=== PATIENT | male | born 1980 | race Caucasian/White ===

== ENCOUNTER 2017-09-21 19:55 | Observation (INO) | payer OTHER ==
[2017-09-21 21:33] VITALS: BP 129/73; PULSE 62; RESP 18; TEMP 98.4; O2SAT 100
[2017-09-21 21:42] VITALS: PULSE 63
[2017-09-22 00:44] VITALS: PULSE 64
[2017-09-22 02:00] VITALS: BP 131/74; PULSE 74; RESP 18; TEMP 98.4; O2SAT 97
[2017-09-22 03:56] VITALS: PULSE 58
[2017-09-22 07:10] VITALS: PULSE 66
[2017-09-22 07:28] VITALS: BP 111/60; PULSE 61; RESP 16; TEMP 97.7; O2SAT 98
--- NOTE | 2017-09-22 08:40 | HHI.HP ---
[facility] Primary Care Physician Unknown Chief Complaint Chest pain History of Present Illness This is a 37-year-old male that presents to ED [place] with a complaint of 3 days of constant central chest discomfort. States is worsened when he lifts weights at the gym. Denies shortness breath, nausea, or diaphoresis. Denies history of CAD. Denies hypertension, hyperlipidemia, diabetes, and CAD. Denies history of tobacco abuse. Denies family history of CAD. Denies recent illness. Denies fevers or chills. Review of Systems General: Patient denies fevers, chills recent, and recent travel HEENT: Patient denies headache, sore throat, difficulty swallowing. Cardiovascular: Has the chest discomfort as mentioned above. Denies sensation of heart beating rapidly or irregularly. No syncope. Denies diaphoresis. Respiratory: Denies shortness of breath or inspirational chest discomfort. Denies coughing wheezing or hemoptysis. GI: Patient denies nausea, vomiting, diarrhea, abdominal pain, bloody stools. Musculoskeletal: Patient denies joint pain or edema. Denies calf pain or edema. Neurovascular: Patient denies numbness, tingling, weakness in extremities. Denies headache. Endocrine: Denies polyuria and polydipsia. Hematologic: Denies easy bruising. Skin: Denies rash or itching. Past Family Social History Allergies: Coded Allergies: Penicillins (Verified Allergy, Unknown, AN INFANT, 09/21/17) Past Medical History Denies hypertension, hyperlipidemia, diabetes, and CAD. Denies history of tobacco abuse. Past Surgical History Vasectomy and circumcision. Reported Medications Reported Meds & Active Scripts Active No Active Prescriptions or Reported Medications Family History Denies family history of CAD. Social History Quit smoking 14 years ago. Prior that one pack of cigarettes a day for a few years. Has occasional alcohol. Denies illicit drugs. Works as a credit or loans officer. Physical Exam Vital Signs Vital Signs Date Time Temp Pulse Resp B/P (MAP) Pulse Ox O2 Delivery O2 Flow Rate FiO2 09/22/17 07:28 97.7 61 16 111/60 (77) 98 09/22/17 03:56 58 09/22/17 02:00 98.4 74 18 131/74 (93) 97 09/22/17 00:44 64 09/21/17 21:42 63 09/21/17 21:33 98.4 62 18 129/73 (91) 100 Physical Exam GENERAL: This is a well-nourished, well-developed patient, in no apparent distress. Patient speaks in clear complete sentences. Patient is pleasant. HEENT: Head is atraumatic and normocephalic. Neck is supple without lymphadenopathy and trachea is midline. No JVD or carotid bruits. CARDIOVASCULAR: Regular rate and rhythm without murmurs, gallops, or rubs. RESPIRATORY: Clear to auscultation. Breath sounds equal bilaterally. No wheezes , rales, or rhonchi. Chest wall is nontender however discomfort is reproducible when pushing and pulling with his arms against resistance. No use of accessory muscles. GASTROINTESTINAL: Abdomen is nontender, nondistended. Abdomen soft. No obvious pulsatile mass or bruit. No CVA tenderness. Strong femoral pulses bilaterally. Normal bowel sounds in all quadrants. MUSCULOSKELETAL: Patient is moving upper and lower extremities freely. No calf tenderness or edema, no Homans sign. Strong pulses in upper and lower extremities. NEUROLOGICAL: Patient is alert and oriented. Cranial nerves 2-12 are grossly intact. No focal deficits and speech is clear. SKIN: No rash and turgor is normal. Laboratory Laboratory Tests Test 09/21/17 21:00 09/21/17 23:45 Troponin I LESS THAN 0.02 LESS THAN 0.02 Imaging Chest x-ray reveals nothing acute. Course EKGs have sinus rhythm with ST findings consistent with early repolarization. Caprini VTE Risk Assessment Caprini VTE Risk Assessment: No/Low Risk (score <= 1) Caprini Risk Assessment Model Point Value = 1 Point Value = 2 Point Value = 3 Point Value = 5 Age 41-60 Minor surgery BMI > 25 kg/m2 Swollen legs Varicose veins or History of unexplained or recurrent spontaneous Oral contraceptives or hormone replacement Sepsis (< 1 month) Serious lung disease, including pneumonia (< 1 month) Abnormal pulmonary function Acute myocardial infarction Congestive heart failure (< 1 month) History of inflammatory bowel disease Medical patient at bed rest Age 61-74 Arthroscopic surgery Major open surgery (> 45 min) Laparoscopic surgery (> 45 min) Malignancy Confined to bed (> 72 hours) Immobilizing plaster cast Central venous access Age >= 75 History of VTE Family history of VTE Factor V Leiden Prothrombin [id number] Lupus anticoagulant Anticardiolipin antibodies Elevated serum homocysteine Heparin-induced thrombocytopenia Other congenital or acquired thrombophilia Stroke (< 1 month) Elective arthroplasty Hip, pelvis, or leg fracture Acute spinal cord injury (< 1 month) Prophylaxis Regimen Total Risk Factor Score Risk Level Prophylaxis Regimen 0-1 Low Early ambulation 2 Moderate Order ONE of the following: *Sequential Compression Device (SCD) *Heparin 5000 units SQ BID 3-4 Higher Order ONE of the following medications: *Heparin 5000 units SQ TID *Enoxaparin/Lovenox 40 mg SQ daily (WT < 150 kg, CrCl > 30 mL/min) *Enoxaparin/Lovenox 30 mg SQ daily (WT < 150 kg, CrCl > 10-29 mL/min) *Enoxaparin/Lovenox 30 mg SQ BID (WT < 150 kg, CrCl > 30 mL/min) AND/OR *Sequential Compression Device (SCD) 5 or more Highest Order ONE of the following medications: *Heparin 5000 units SQ TID (Preferred with Epidurals) *Enoxaparin/Lovenox 40 mg SQ daily (WT < 150 kg, CrCl > 30 mL/min) *Enoxaparin/Lovenox 30 mg SQ daily (WT < 150 kg, CrCl > 10-29 mL/min) *Enoxaparin/Lovenox 30 mg SQ BID (WT < 150 kg, CrCl > 30 mL/min) AND *Sequential Compression Device (SCD) Assessment and Plan Assessment and Plan * Atypical chest pain: His discomfort appears musculoskeletal in nature. He is a serial cardiac enzymes and EKGs for ruling out purposes. He was seen by Dr. Tovar cardiology in the chest pain center. He will undergo a Deni protocol ETT and be discharged a stress test was nonischemic and be given a prescription of naproxen and also instructed to follow-up with PCP. Return to ED for interval issues. Patient is stable at this time. He is agreeable to this plan. Ramirez Correa Sep 22, 2017 08:40
[2017-09-22] MEDS ORDERED: NAPR500T2 PO (08:45)
--- NOTE | 2017-09-22 08:46 | HHI.DCPOC ---
Discharge Care Plan Diagnosis: (1) Chest pain, atypical Goals to Promote Your Health * To prevent worsening of your condition and complications * To maintain your health at the optimal level Directions to Meet Your Goals Take your medications as prescribed Follow your dietary instruction Follow activity as directed Keep your appointments as scheduled Take your immunizations and boosters as scheduled If your symptoms worsen call your PCP, if no PCP go to Urgent Care Center or Emergency Room Smoking is Dangerous to Your Health. Avoid second hand smoke Call the 24-hour hour crisis hotline for domestic abuse at Ramirez Correa Sep 22, 2017 08:46
--- NOTE | 2017-09-22 09:33 | TR ---
Date Performed: 09/22/2017 Time Performed: 08:12:21 DOCTOR: Meryl Tovar DRUG LIST: CLINICAL HISTORY: REASON FOR TEST: REASON FOR ENDING: OBSERVATION: CONCLUSION: KELLIE PROTOCOL. NO CP. MILD SOB. TEST STOPPED AFTER EXCEEDING GOAL HR SECONDARY TO L EG FATIGUE.Maximum AO=783 % Max HR Achieved=99.0% Maximum SR=877/78 Total Exercise Time=11:01 COMMENTS:
--- NOTE | 2017-09-22 15:28 | EKG ---
Date Performed: 09/22/2017 Time Performed: 01:25:18 PTAGE: 37 years EKG: SINUS BRADYCARDIA ST ELEVATION, PROBABLY EARLY REPOLARIZATION BORDERLINE ECG Since PREVIOUS TRACING , no significant change noted PREVIOUS TRACIN09/21/2017 21.20 DOCTOR: Meryl Tovar Interpretating Date/Time 09/22/2017 15:27:35
--- NOTE | 2017-09-22 15:31 | EKG ---
Date Performed: 09/21/2017 Time Performed: 21:20:05 PTAGE: 37 years EKG: Sinus rhythm WITH SINUS ARRHYTHMIA ST ELEVATION, PROBABLY EARLY REPOLARIZATION BORDERLINE ECG Since PREVIOUS TRACING , no significant change noted DOCTOR: Meryl Tovar Interpretating Date/Time 09/22/2017 15:29:45
== END 2017-09-22 10:23 | disposition home or self-care (01) ==
LOC: NEDDLT 19:55 → NEPFCDU 20:05
PROVIDERS: ADMIT Internal Medicine Cardiovascular Disease; ATTEND Internal Medicine Cardiovascular Disease
DX: R07.9 Chest pain, unspecified (principal); R94.31 Abnormal electrocardiogram [ECG] [EKG]; Z87.891 Personal history of nicotine dependence
CPT/HCPCS: 71045; 80053; 82550; 82552; 83690; 84484; 85025; 85610; 85730; 93005; 93017; 99285; G0378

== ENCOUNTER 2018-05-18 03:00 | Observation (INO) ==
[2018-05-18] MEDS ORDERED: Sodium Chlor 0.9% Inj 500 ML IV.SIG ONE ×2 (03:32→05:09)
--- NOTE | 2018-05-18 03:35 | ED ---
HPI General Chief complaint: Chest Pain Stated complaint: Chest pain Time Seen by Provider: 05/18/18 03:32 Source: patient and EMS Mode of arrival: EMS Limitations: no limitations History of Present Illness HPI narrative: The patient is a 37 year old male who presents to the [facility] emergency department with a history of onset of chest pain and back pain that began while he was working out at work prior to arrival. The patient reports that he was doing push-ups and pull-ups. He reports that the pain is been constant since it began. He reports that the pain is a pressure sensation. He reports that since then he has developed numbness and tingling to his arms and legs, shortness of breath with hyperventilation, and tingling around his mouth. The patient reports that he did drink 3 coffees earlier this evening, however this is not unusual for him. He reports that over the last 2 weeks he has been on a strict diet, however he has been eating regular meals. He reports that he has had a 7 pound weight loss in the last 2 weeks as he is trying to get fit. He denies ever having chest pain like this previously. He reports that he has been under increased stress related to problems at home. On review of systems otherwise, the patient denies having any radiation of pain into his shoulders or throat. He denies having any nausea or diaphoresis. He denies having any prior history of coronary artery disease, DVT, or PE. He denies having any calf pain or swelling. On review of systems otherwise, the patient denies having any recent fevers, cough, congestion, neck pain, vomiting , diarrhea, urinary symptoms, or neurologic symptoms. The patient reports that over the last 6-7 months he has had upper abdominal pain. He reports that this has been coming and going. He denies having a primary care physician currently. Related Data Home Medications Medication Instructions Recorded Confirmed No Known Home Medications 05/18/18 05/18/18 Allergies Allergy/AdvReac Type Severity Reaction Status Date / Time Penicillins Allergy Unknown AN Verified 09/21/17 17:37 Review of Systems ROS: all other systems reviewed are negative (Except for that which was mentioned in the HPI.) [facility] Medical History Medical History Patient denies medical problems (Acute) Surgical History Surgical History H/O vasectomy (Acute) Family History Family History Other Patient denies significant medical history Social History Social History Substance History: No History of Abuse Second Hand Smoke Exposure: No Smoking Status: Former smoker Tobacco Type: Cigarettes How Often Do You Have a Drink Containing Alcohol: Monthly or less Recent Travel in [facility] within the Last 8 Weeks: No Recent Out of Country Travel within the Last 8 Weeks: No Immunization History Tetanus Immunization: >5 Years Hx Influenza Vaccine This Season: No Exam Const General: cooperative, well developed and anxious Nutritional Appearance: well nourished Orientation: alert, awake and oriented x3 HENMT Head: normocephalic and atraumatic Nose: no nasal discharge and no epistaxis Mouth: moist mucous membranes Throat: posterior oropharynx normal and uvula midline Eyes Sclera: normal sclerae Pupils: PERRL Neck Neck: no meningeal signs, trachea midline and no JVD Resp Effort & Inspection: tachypneic (The patient is noted to be hyperventilating.) and no use of accessory muscles Auscultation: clear to auscultation bilaterally Cardio Rate: tachycardic (Sinus tachycardia in the low 100s. No pulse deficits to the extremities on simultaneous auscultation and palpation of his radial artery.) Rhythm: regular rhythm Heart Sounds: no gallops, no murmurs and no rubs GI Inspection: non-distended Palpation: soft, no hepatosplenomegaly, no guarding, not rigid and tender in the epigastrum; not in the LLQ, not in the RLQ, not in the LUQ, not in the RUQ, not at McBurney's point, Ramsey's sign negative and with no rebound tenderness Auscultation: normal bowel sounds Back/Spine/Pelvis Back: no CVA tenderness Skin General: dry skin (warm) Neuro General: alert, awake and oriented x3 Cranial Nerves: other (No facial asymmetry. Grossly nonfocal.) Speech: speech normal Motor: no movement abnormalities noted Extrem General: normal to inspection (No calf tenderness on palpation. 2+ pulses in all 4 extremities.), no clubbing, no cyanosis and no edema Psych Mood: anxious mood Affect: anxious affect Judgment: judgment good Course Reevaluation(s) Reevaluation #1: The patient on reevaluation was resting comfortably and feeling improved. Consultations Consultation #1: The patient's case including history, pertinent physical examination findings, and laboratory studies were discussed with Dr. Franks. It was agreed that the patient would be admitted to the hospitalist service. Initial Documented Vital Signs Temperature 98.3 F 05/18/18 03:18 Pulse Rate 118 H 05/18/18 03:18 Respiratory Rate 22 05/18/18 03:18 Blood Pressure 164/79 H 05/18/18 03:18 Pulse Oximetry 100 05/18/18 03:18 Last Documented Vital Signs Temperature 97.6 F 05/18/18 15:06 Pulse Rate 86 05/18/18 15:06 Respiratory Rate 18 05/18/18 15:06 Blood Pressure 107/58 L 05/18/18 15:06 Pulse Oximetry 99 05/18/18 15:06 Medical Decision Making MDM Narrative Medical decision making narrative: During the course of the patient's emergency department visit, the patient's history, examination, and differential diagnosis were reviewed with the patient. The patient was placed on a monitoring engineer with oximetry and frequent blood pressure monitoring. The patient had IV access obtained and blood work sent for analysis. Diagnostic evaluation was started regarding the patient's chest pain and shortness of breath. The patient was initially provided aspirin 324 mg prior to arrival by ambulance services. The patient's diagnostic evaluation is remarkable for white count of 7.8, platelets 274, normal differential, hemoglobin is 14.2, PT 11.8, INR 1.2, PTT 23.3, chemistry is remarkable for magnesium of 1.1. This will be supplemented IV. Troponin I was less than 0.02, GFR is 80, chloride 111, calcium 7.7, potassium 2.9. The patient was noted to have an acidosis with an lactic acid was sent for evaluation regarding the patient's workup. The patient's lactic acid was within normal limits. The patient's potassium was supplemented orally. CPK is 70. BNP is within normal limits at 5. Urinalysis showed no acute abnormality, urine drug screen is negative, chest x-ray shows no acute evidence of cardiopulmonary disease. The patient will be [facility] to the [facility] service for continuation of treatment of electrolyte derangements which could be related to his recent weight loss regimen. The patient's results were discussed with the patient, including the plan of care. I explained that further testing and/ or monitoring is indicated based on the patient's history, examination, and/ or laboratory findings. Therefore, I recommended admission for additional evaluation. The patient expressed understanding and was agreeable with this plan. The patient was admitted to the hospital in stable condition and sent to a bed under the care of [facility]. Medical Screen Exam Complete: Yes Emergency Medical Condition: Yes Differential Diagnosis Differential Diagnosis: Acute coronary syndrome, versus aortic dissection, versus electrolyte derangements, versus rhabdomyolysis, versus anxiety disorder Medical Records Medical records reviewed: Yes I reviewed the patient's medical records. Lab Data Lab results reviewed: Yes I reviewed the patient's lab results. Result diagrams: 05/18/18 03:40 05/18/18 09:58 Lab Results 05/18/18 05/18/18 05/18/18 Range/Units 03:40 03:40 03:40 WBC 7.8 (4.0-11.0) th/mm3 RBC 4.29 L (4.50-5.90) mil/mm3 Hgb 14.2 (13.0-17.0) gm/dL Hct 40.6 (39.0-51.0) % MCV 94.8 (80.0-100.0) fL MCH 33.2 (27.0-34.0) pg MCHC 35.0 (32.0-36.0) % RDW 13.9 (11.6-17.2) % Plt Count 274 (150-450) th/mm3 MPV 8.0 (7.0-11.0) fL Neut % (Auto) 65.6 (16.0-70.0) % Lymph % (Auto) 25.5 (9.0-44.0) % [place] % (Auto) 6.8 (0.0-8.0) % Eos % (Auto) 1.4 (0.0-4.0) % Baso % (Auto) 0.7 (0.0-2.0) % Neut # (Auto) 5.1 (1.8-7.7) th/mm3 Lymph # (Auto) 2.0 (1.0-4.8) th/mm3 [place] # (Auto) 0.5 (0.0-0.9) th/mm3 Eos # (Auto) 0.1 (0.0-0.4) th/mm3 Baso # (Auto) 0.1 (0.0-0.2) th/mm3 WBC Differential . Differential Comment Auto diff final PT (9.8-11.6) sec INR Ratio APTT (24.3-30.1) sec Fibrinogen (227-377) mg/dL D-Dimer Quant (PE/DVT) 0.23 (0.00-0.50) mg/L FEU Sodium 141 (136-145) meq/L Potassium 2.9 L* (3.5-5.1) meq/L Chloride 105 (98-107) meq/L Carbon Dioxide 18.9 L (21.0-32.0) meq/L Anion Gap 17 H (5-15) meq/L BUN 6 L (7-18) mg/dL Creatinine 1.39 H (0.60-1.30) mg/dL Estimated GFR 58 L (>89) mL/min Random Glucose 113 H (74-106) mg/dL Lactic Acid (0.4-2.0) mmol/L Calcium 8.6 (8.5-10.1) mg/dL Phosphorus (2.5-4.9) mg/dL Magnesium (1.5-2.5) mg/dL Total Bilirubin 0.4 (0.2-1.0) mg/dL AST 16 (15-37) U/L ALT 24 (12-78) U/L Alkaline Phosphatase 60 (45-117) U/L Total Creatine Kinase (39-308) U/L Troponin I Less than 0.02 L (0.02-0.05) ng/mL B-Natriuretic Peptide (0-100) pg/mL Total Protein 7.7 (6.4-8.2) g/dL Albumin 4.1 (3.4-5.0) g/dL Lipase 76 (73-393) U/L TSH 0.507 (0.358-3.740) uIU/mL Urine Color (Yellw/Straw) Urine Clarity (Clear) Urine pH (5.0-8.5) Ur Specific [place] (1.002-1.035) Urine Protein (Neg-Trace) mg/dL Urine Glucose (UA) (Negative) mg/dL Urine Ketones (Negative) mg/dL Urine Occult Blood (Negative) Urine Nitrate (Negative) Urine Bilirubin (Negative) Urine Urobilinogen (Less than 2) mg/dL Ur Leukocyte Esterase (Negative) Urine RBC (0-3) /hpf Urine WBC (0-5) /hpf Urine Mucus (Occasional) /lpf Micro UA Comment Ur Microscopic Review Urine Culture Comments Urine Opiates Screen (Neg) Ur Barbiturates Screen (Neg) Ur Amphetamines Screen (Neg) U Benzodiazepines Scrn (Neg) Urine Cocaine Screen (Neg) U Cannabinoids Screen (Neg) 05/18/18 05/18/18 05/18/18 Range/Units 03:40 03:40 03:40 WBC (4.0-11.0) th/mm3 RBC (4.50-5.90) mil/mm3 Hgb (13.0-17.0) gm/dL Hct (39.0-51.0) % MCV (80.0-100.0) fL MCH (27.0-34.0) pg MCHC (32.0-36.0) % RDW (11.6-17.2) % Plt Count (150-450) th/mm3 MPV (7.0-11.0) fL Neut % (Auto) (16.0-70.0) % Lymph % (Auto) (9.0-44.0) % [place] % (Auto) (0.0-8.0) % Eos % (Auto) (0.0-4.0) % Baso % (Auto) (0.0-2.0) % Neut # (Auto) (1.8-7.7) th/mm3 Lymph # (Auto) (1.0-4.8) th/mm3 [place] # (Auto) (0.0-0.9) th/mm3 Eos # (Auto) (0.0-0.4) th/mm3 Baso # (Auto) (0.0-0.2) th/mm3 WBC Differential Differential Comment PT 11.8 H (9.8-11.6) sec INR 1.2 Ratio APTT 23.3 L (24.3-30.1) sec Fibrinogen 209 L (227-377) mg/dL D-Dimer Quant (PE/DVT) (0.00-0.50) mg/L FEU Sodium (136-145) meq/L Potassium (3.5-5.1) meq/L Chloride (98-107) meq/L Carbon Dioxide (21.0-32.0) meq/L Anion Gap (5-15) meq/L BUN (7-18) mg/dL Creatinine (0.60-1.30) mg/dL Estimated GFR (>89) mL/min Random Glucose (74-106) mg/dL Lactic Acid (0.4-2.0) mmol/L Calcium (8.5-10.1) mg/dL Phosphorus (2.5-4.9) mg/dL Magnesium 1.1 L (1.5-2.5) mg/dL Total Bilirubin (0.2-1.0) mg/dL AST (15-37) U/L ALT (12-78) U/L Alkaline Phosphatase (45-117) U/L Total Creatine Kinase 70 (39-308) U/L Troponin I (0.02-0.05) ng/mL B-Natriuretic Peptide 5 (0-100) pg/mL Total Protein (6.4-8.2) g/dL Albumin (3.4-5.0) g/dL Lipase (73-393) U/L TSH (0.358-3.740) uIU/mL Urine Color (Yellw/Straw) Urine Clarity (Clear) Urine pH (5.0-8.5) Ur Specific [place] (1.002-1.035) Urine Protein (Neg-Trace) mg/dL Urine Glucose (UA) (Negative) mg/dL Urine Ketones (Negative) mg/dL Urine Occult Blood (Negative) Urine Nitrate (Negative) Urine Bilirubin (Negative) Urine Urobilinogen (Less than 2) mg/dL Ur Leukocyte Esterase (Negative) Urine RBC (0-3) /hpf Urine WBC (0-5) /hpf Urine Mucus (Occasional) /lpf Micro UA Comment Ur Microscopic Review Urine Culture Comments Urine Opiates Screen (Neg) Ur Barbiturates Screen (Neg) Ur Amphetamines Screen (Neg) U Benzodiazepines Scrn (Neg) Urine Cocaine Screen (Neg) U Cannabinoids Screen (Neg) 05/18/18 05/18/18 05/18/18 Range/Units 03:40 04:44 04:44 WBC (4.0-11.0) th/mm3 RBC (4.50-5.90) mil/mm3 Hgb (13.0-17.0) gm/dL Hct (39.0-51.0) % MCV (80.0-100.0) fL MCH (27.0-34.0) pg MCHC (32.0-36.0) % RDW (11.6-17.2) % Plt Count (150-450) th/mm3 MPV (7.0-11.0) fL Neut % (Auto) (16.0-70.0) % Lymph % (Auto) (9.0-44.0) % [place] % (Auto) (0.0-8.0) % Eos % (Auto) (0.0-4.0) % Baso % (Auto) (0.0-2.0) % Neut # (Auto) (1.8-7.7) th/mm3 Lymph # (Auto) (1.0-4.8) th/mm3 [place] # (Auto) (0.0-0.9) th/mm3 Eos # (Auto) (0.0-0.4) th/mm3 Baso # (Auto) (0.0-0.2) th/mm3 WBC Differential Differential Comment PT (9.8-11.6) sec INR Ratio APTT (24.3-30.1) sec Fibrinogen (227-377) mg/dL D-Dimer Quant (PE/DVT) (0.00-0.50) mg/L FEU Sodium (136-145) meq/L Potassium (3.5-5.1) meq/L Chloride (98-107) meq/L Carbon Dioxide (21.0-32.0) meq/L Anion Gap (5-15) meq/L BUN (7-18) mg/dL Creatinine (0.60-1.30) mg/dL Estimated GFR (>89) mL/min Random Glucose (74-106) mg/dL Lactic Acid (0.4-2.0) mmol/L Calcium (8.5-10.1) mg/dL Phosphorus 0.5 L (2.5-4.9) mg/dL Magnesium (1.5-2.5) mg/dL Total Bilirubin (0.2-1.0) mg/dL AST (15-37) U/L ALT (12-78) U/L Alkaline Phosphatase (45-117) U/L Total Creatine Kinase (39-308) U/L Troponin I (0.02-0.05) ng/mL B-Natriuretic Peptide (0-100) pg/mL Total Protein (6.4-8.2) g/dL Albumin (3.4-5.0) g/dL Lipase (73-393) U/L TSH (0.358-3.740) uIU/mL Urine Color Straw (Yellw/Straw) Urine Clarity Clear (Clear) Urine pH 6.0 (5.0-8.5) Ur Specific [place] 1.004 (1.002-1.035) Urine Protein Negative (Neg-Trace) mg/dL Urine Glucose (UA) Negative (Negative) mg/dL Urine Ketones 20 (Negative) mg/dL Urine Occult Blood Negative (Negative) Urine Nitrate Negative (Negative) Urine Bilirubin Negative (Negative) Urine Urobilinogen Less than 2 (Less than 2) mg/dL Ur Leukocyte Esterase Negative (Negative) Urine RBC Less than 1 (0-3) /hpf Urine WBC Less than 1 (0-5) /hpf Urine Mucus Few H (Occasional) /lpf Micro UA Comment Culture not ind Ur Microscopic Review Not Reportable Urine Culture Comments Culture not ind Urine Opiates Screen Neg (Neg) Ur Barbiturates Screen Neg (Neg) Ur Amphetamines Screen Neg (Neg) U Benzodiazepines Scrn Neg (Neg) Urine Cocaine Screen Neg (Neg) U Cannabinoids Screen Neg (Neg) 05/18/18 05/18/18 05/18/18 Range/Units 06:34 08:40 09:58 WBC (4.0-11.0) th/mm3 RBC (4.50-5.90) mil/mm3 Hgb (13.0-17.0) gm/dL Hct (39.0-51.0) % MCV (80.0-100.0) fL MCH (27.0-34.0) pg MCHC (32.0-36.0) % RDW (11.6-17.2) % Plt Count (150-450) th/mm3 MPV (7.0-11.0) fL Neut % (Auto) (16.0-70.0) % Lymph % (Auto) (9.0-44.0) % [place] % (Auto) (0.0-8.0) % Eos % (Auto) (0.0-4.0) % Baso % (Auto) (0.0-2.0) % Neut # (Auto) (1.8-7.7) th/mm3 Lymph # (Auto) (1.0-4.8) th/mm3 [place] # (Auto) (0.0-0.9) th/mm3 Eos # (Auto) (0.0-0.4) th/mm3 Baso # (Auto) (0.0-0.2) th/mm3 WBC Differential Differential Comment PT (9.8-11.6) sec INR Ratio APTT (24.3-30.1) sec Fibrinogen (227-377) mg/dL D-Dimer Quant (PE/DVT) (0.00-0.50) mg/L FEU Sodium 144 (136-145) meq/L Potassium 3.9 D (3.5-5.1) meq/L Chloride 111 H (98-107) meq/L Carbon Dioxide 23.9 (21.0-32.0) meq/L Anion Gap 9 (5-15) meq/L BUN 5 L (7-18) mg/dL Creatinine 1.06 (0.60-1.30) mg/dL Estimated GFR 80 L (>89) mL/min Random Glucose 92 (74-106) mg/dL Lactic Acid 1.0 (0.4-2.0) mmol/L Calcium 7.7 L D (8.5-10.1) mg/dL Phosphorus 3.2 D (2.5-4.9) mg/dL Magnesium 2.4 D (1.5-2.5) mg/dL Total Bilirubin (0.2-1.0) mg/dL AST (15-37) U/L ALT (12-78) U/L Alkaline Phosphatase (45-117) U/L Total Creatine Kinase (39-308) U/L Troponin I Less than 0.02 L Less than 0.02 L (0.02-0.05) ng/mL B-Natriuretic Peptide (0-100) pg/mL Total Protein (6.4-8.2) g/dL Albumin (3.4-5.0) g/dL Lipase (73-393) U/L TSH (0.358-3.740) uIU/mL Urine Color (Yellw/Straw) Urine Clarity (Clear) Urine pH (5.0-8.5) Ur Specific [place] (1.002-1.035) Urine Protein (Neg-Trace) mg/dL Urine Glucose (UA) (Negative) mg/dL Urine Ketones (Negative) mg/dL Urine Occult Blood (Negative) Urine Nitrate (Negative) Urine Bilirubin (Negative) Urine Urobilinogen (Less than 2) mg/dL Ur Leukocyte Esterase (Negative) Urine RBC (0-3) /hpf Urine WBC (0-5) /hpf Urine Mucus (Occasional) /lpf Micro UA Comment Ur Microscopic Review Urine Culture Comments Urine Opiates Screen (Neg) Ur Barbiturates Screen (Neg) Ur Amphetamines Screen (Neg) U Benzodiazepines Scrn (Neg) Urine Cocaine Screen (Neg) U Cannabinoids Screen (Neg) 05/18/18 Range/Units 10:06 WBC (4.0-11.0) th/mm3 RBC (4.50-5.90) mil/mm3 Hgb (13.0-17.0) gm/dL Hct (39.0-51.0) % MCV (80.0-100.0) fL MCH (27.0-34.0) pg MCHC (32.0-36.0) % RDW (11.6-17.2) % Plt Count (150-450) th/mm3 MPV (7.0-11.0) fL Neut % (Auto) (16.0-70.0) % Lymph % (Auto) (9.0-44.0) % [place] % (Auto) (0.0-8.0) % Eos % (Auto) (0.0-4.0) % Baso % (Auto) (0.0-2.0) % Neut # (Auto) (1.8-7.7) th/mm3 Lymph # (Auto) (1.0-4.8) th/mm3 [place] # (Auto) (0.0-0.9) th/mm3 Eos # (Auto) (0.0-0.4) th/mm3 Baso # (Auto) (0.0-0.2) th/mm3 WBC Differential Differential Comment PT (9.8-11.6) sec INR Ratio APTT (24.3-30.1) sec Fibrinogen (227-377) mg/dL D-Dimer Quant (PE/DVT) (0.00-0.50) mg/L FEU Sodium (136-145) meq/L Potassium (3.5-5.1) meq/L Chloride (98-107) meq/L Carbon Dioxide (21.0-32.0) meq/L Anion Gap (5-15) meq/L BUN (7-18) mg/dL Creatinine (0.60-1.30) mg/dL Estimated GFR (>89) mL/min Random Glucose (74-106) mg/dL Lactic Acid (0.4-2.0) mmol/L Calcium (8.5-10.1) mg/dL Phosphorus Cancelled (2.5-4.9) mg/dL Magnesium Cancelled (1.5-2.5) mg/dL Total Bilirubin (0.2-1.0) mg/dL AST (15-37) U/L ALT (12-78) U/L Alkaline Phosphatase (45-117) U/L Total Creatine Kinase (39-308) U/L Troponin I (0.02-0.05) ng/mL B-Natriuretic Peptide (0-100) pg/mL Total Protein (6.4-8.2) g/dL Albumin (3.4-5.0) g/dL Lipase (73-393) U/L TSH (0.358-3.740) uIU/mL Urine Color (Yellw/Straw) Urine Clarity (Clear) Urine pH (5.0-8.5) Ur Specific [place] (1.002-1.035) Urine Protein (Neg-Trace) mg/dL Urine Glucose (UA) (Negative) mg/dL Urine Ketones (Negative) mg/dL Urine Occult Blood (Negative) Urine Nitrate (Negative) Urine Bilirubin (Negative) Urine Urobilinogen (Less than 2) mg/dL Ur Leukocyte Esterase (Negative) Urine RBC (0-3) /hpf Urine WBC (0-5) /hpf Urine Mucus (Occasional) /lpf Micro UA Comment Ur Microscopic Review Urine Culture Comments Urine Opiates Screen (Neg) Ur Barbiturates Screen (Neg) Ur Amphetamines Screen (Neg) U Benzodiazepines Scrn (Neg) Urine Cocaine Screen (Neg) U Cannabinoids Screen (Neg) Imaging Data Radiologist's impression: Gallbladder Ultrasound 05/18/18 00:00 CONCLUSION: 1. Poor visualization of pancreas otherwise unremarkable examination. Chest X-Ray 05/18/18 03:32 CONCLUSION: No evidence of acute cardiopulmonary disease. ECG Data Attestation: I personally reviewed and interpreted this ECG as follows: Interpretation: The patient had a EKG done on arrival that shows a sinus rhythm is 96, QRS duration is 96 ms, QTC is [address] segment elevation is noted. T waves are inverted in V1. Discharge Plan Discharge Disposition Patient Disposition: 30 Still Patient Discharge Condition Condition: Good Discharge Order Discharge Orders: Discharge Order (Routine); Ordered 05/18/18 Ordered By: Jaspal Mccauley Discharge Details Diagnosis: Disorder of electrolytes, Increased anion gap metabolic acidosis Physicians Team ED Provider: Laura Arroyo Primary Care Provider: Primary Care Malachi,Gianna Attending Provider: Jaspal Mccauley Status ED Status: Admitted Observation Patient
[2018-05-18 04:02] LABS: Baso # (Auto) 0.1 th/mm3 (0.0-0.2); Baso % (Auto) 0.7 % (0.0-2.0); Eos # (Auto) 0.1 th/mm3 (0.0-0.4); Eos % (Auto) 1.4 % (0.0-4.0); Hematocrit 40.6 % (39.0-51.0); Hemoglobin 14.2 gm/dL (13.0-17.0); Lymph % (Auto) 25.5 % (9.0-44.0); Mean Corpuscular Hemoglobin 33.2 pg (27.0-34.0); Mean Corpuscular Volume 94.8 fL (80.0-100.0); Mono # (Auto) 0.5 th/mm3 (0.0-0.9); Mono % (Auto) 6.8 % (0.0-8.0); Neut # (Auto) 5.1 th/mm3 (1.8-7.7); Neut % (Auto) 65.6 % (16.0-70.0); Platelet Count 274 th/mm3 (150-450); Red Blood Count 4.29 mil/mm3 (4.50-5.90); Red Cell Distribution Width 13.9 % (11.6-17.2); White Blood Count 7.8 th/mm3 (4.0-11.0)
[2018-05-18 04:13] LABS: Activated Partial Thrombo Time 23.3 sec (24.3-30.1); INR 1.2 Ratio; Prothrombin Time 11.8 sec (9.8-11.6)
[2018-05-18 04:20] LABS: Magnesium 1.1 mg/dL (1.5-2.5)
--- NOTE | 2018-05-18 04:22 | XR ---
EXAM DATE: 05/18/2018 4:15 AM EDT AGE/SEX: 37 years / Male INDICATIONS: Chest pressure today. CLINICAL DATA: This is the patient's initial encounter. Patient reports that signs and symptoms have been present for 1 day and indicates a pain score of 0/10. MEDICAL/SURGICAL HISTORY: Asthma. None. COMPARISON: [facility], CHEST SINGLE AP, 09/21/2017. . FINDINGS: A single AP view of the chest demonstrates the lungs to be symmetrically aerated without evidence of mass, infiltrate or effusion. The cardiomediastinal contours are unremarkable. Osseous structures a re intact. CONCLUSION: No evidence of acute cardiopulmonary disease. Electronically signed by: Fawad Vieira MD 05/18/2018 4:20 AM EDT
[2018-05-18] MEDS ORDERED: Mag Sulf 1 gm/100 ml Premix 100 ML IV.SIG ONE ×2 (04:32→05:08)
[2018-05-18 04:40] LABS: Alanine Aminotransferase 24 U/L (12-78); Albumin 4.1 g/dL (3.4-5.0); Alkaline Phosphatase 60 U/L (45-117); Anion Gap 17 meq/L (5-15); Aspartate Aminotransferase 16 U/L (15-37); Blood Urea Nitrogen 6 mg/dL (7-18); Calcium 8.6 mg/dL (8.5-10.1); Carbon Dioxide 18.9 meq/L (21.0-32.0); Chloride 105 meq/L (98-107); Glomerular Filtration Rate 58 mL/min (>89); Glucose,Random 113 mg/dL (74-106); Lipase 76 U/L (73-393); Sodium 141 meq/L (136-145); Thyroid Stimulating Hormone 0.507 uIU/mL (0.358-3.740); Total Protein 7.7 g/dL (6.4-8.2)
[2018-05-18 04:45] LABS: Potassium 2.9 meq/L (3.5-5.1)
[2018-05-18 05:07] LABS: Bilirubin,Urine Negative (Negative); Clarity,Urine Clear (Clear); Color,Urine Straw (Yellw/Straw); Glucose,Urine (UA) Negative (Negative); Leukocyte Esterase,Urine Negative (Negative); Mucus,Urine Few /lpf (Occasional); Nitrite,Urine Negative (Negative); Specific Gravity,Urine 1.004 (1.002-1.035)
[2018-05-18] MEDS ORDERED: Potassium Chloride 25 MEQ Effervescent Tablet PO ONE (05:08)
[2018-05-18] MEDS ORDERED: Bisacodyl 10 MG Supp RECTAL PRN (06:26)
[2018-05-18] MEDS ORDERED: Sod Chloride 0.9% Inj 1,000 ML IV.CONT SCH (06:30)
[2018-05-18 07:03] LABS: Amphetamine Screen,Urine Neg (Neg); Barbiturate Screen,Urine Neg (Neg); Cannabinoid Screen,Urine Neg (Neg); Cocaine Screen,Urine Neg (Neg)
[2018-05-18 07:09] LABS: Opiate Screen,Urine Neg (Neg)
--- NOTE | 2018-05-18 10:44 | P.HPIM ---
History of Present Illness Primary Care Physician: No Primary Care Physician Chief Complaint: chest pain History of Present Illness: patient is a 37 y/o male with no significant past medical history who presented to ER with chest pain. he says that he was doing push-ups yesterday when he started to have some chest pain, back pain. he says that ' his whole body felt numb'. he had some dizziness but no diaphoresis or emesis. he says that he's been on a restrict diet for two week to lose some weight; in fact he lost about seven pounds within that period of time. he's also complaining of some pain to the RUQ which he says that has been going on for a while. at the time of my evaluation he was resting comfortably with no chest pain. Review of Systems All other systems reviewed negative except as stated in HPI PMFSH - History History Provided By: Patient - Medical History Medical History: Medical History (Last Reviewed 05/18/18 @ 04:25 by Laura Arroyo MD) Patient denies medical problems - Surgical History Surgical History: Surgical History (Last Reviewed 05/18/18 @ 04:25 by Laura Arroyo MD) H/O vasectomy - Family History Family History: Family History (Last Updated 05/18/18 @ 10:41 by Jaspal Mccauley MD) Other Patient denies significant medical history - Tobacco History Smoking Status: Former smoker Tobacco Type: Cigarettes - Alcohol History How Often Do You Have a Drink Containing Alcohol: Never - Travel History Recent Travel Out of the Country Within the Last 8 Weeks: No - Immunization History Tetanus Immunization: >5 Years Hx Influenza Vaccine This Season: No Medications and Allergies Active Medications: Active Medications Al Hydroxide/Mg Hydroxide (Milk Of Magnesia Liq) 30 ml PO Q12H PRN PRN Reason: Mild Constipation Bisacodyl (Dulcolax Supp) 10 mg RECTAL DAILY PRN PRN Reason: SEVERE CONSITIPATION Sodium Chloride (Ns Inj) 1,000 mls @ 100 mls/hr IV.CONT .Q10H [facility] Last Admin: 05/18/18 08:00 Dose: 100 mls/hr Lactulose (Lactulose Liq) 30 ml PO DAILY PRN PRN Reason: SEVERE CONSITIPATION Sennosides (Senokot) 17.2 mg PO Q12H PRN PRN Reason: Moderate Constipation Sodium Chloride (Ns Flush) 2 ml IV.FLUSH UNSCH PRN PRN Reason: FLUSH AFTER USING IV ACCESS Last Admin: 05/18/18 03:50 Dose: 2 ml Allergies Allergy/AdvReac Type Severity Reaction Status Date / Time Penicillins Allergy Unknown AN Verified 09/21/17 17:37 Home Medications Medication Instructions Recorded Confirmed Type No Known Home Medications 05/18/18 05/18/18 History Exam Vital signs: Vital Signs 05/18/18 03:18 05/18/18 03:47 05/18/18 03:53 Temperature 98.3 F Pulse Rate 118 H Respiratory Rate 22 20 Blood Pressure 164/79 H Pulse Oximetry 100 99 05/18/18 04:30 05/18/18 08:02 Temperature Pulse Rate 93 H 90 Respiratory Rate 20 16 Blood Pressure 111/57 L 113/59 L Pulse Oximetry 98 96 Intake & Output 05/17/18 05/18/18 05/18/18 18:59 06:59 18:59 Intake Total 500 / 500 Balance 500 / 500 Weight 86.183 kg Intake: IV 500 / 500 NS Inj 500 ML @ Wide Open IV. 500 / 500 SIG ONCE ONE Rx#:[id number] Other: # Voids 1 - Constitutional no acute distress - Routine HEENT Exam Eye: Present: PERRL - Routine Neck Exam Present: full ROM - Routine Respiratory Exam Present: CTA bilaterally - Routine Cardiovascular Exam Present: RRR - Routine Abdominal Exam Present: soft - Routine Extremities Exam Comments: no pedal edema. - Routine Neurological Exam Present: alert, oriented X3 Results - Labs CBC & Chem 7: 05/18/18 03:40 05/18/18 09:58 Labs: Short CBC 05/18/18 Range/Units 03:40 WBC 7.8 (4.0-11.0) th/mm3 Hgb 14.2 (13.0-17.0) gm/dL Hct 40.6 (39.0-51.0) % Plt Count 274 (150-450) th/mm3 BMP 05/18/18 03:40 Sodium 141 Potassium 2.9 L* Chloride 105 Carbon Dioxide 18.9 L BUN 6 L Creatinine 1.39 H Calcium 8.6 Cardiac Enzymes 05/18/18 05/18/18 05/18/18 Range/Units 03:40 03:40 08:40 Total Creatine Kinase 70 (39-308) U/L Troponin I Less than 0.02 L Less than 0.02 L (0.02-0.05) ng/mL Liver Function 05/18/18 Range/Units 03:40 Total Bilirubin 0.4 (0.2-1.0) mg/dL AST 16 (15-37) U/L ALT 24 (12-78) U/L Alkaline Phosphatase 60 (45-117) U/L Albumin 4.1 (3.4-5.0) g/dL Urine 05/18/18 Range/Units 04:44 Urine Color Straw (Yellw/Straw) Urine Clarity Clear (Clear) Urine pH 6.0 (5.0-8.5) Ur Specific [place] 1.004 (1.002-1.035) Urine Protein Negative (Neg-Trace) mg/dL Urine Glucose (UA) Negative (Negative) mg/dL - Imaging Impressions Chest X-Ray 05/18/18 03:32 CONCLUSION: No evidence of acute cardiopulmonary disease. Caprini VTE Risk Assessment Caprini VTE Risk Assessment: No/Low Risk (score <= 1) Caprini Risk Assessment Model: Point Value = 1 Point Value = 2 Point Value = 3 Point Value = 5 Age 41-60 Minor surgery BMI > 25 kg/m2 Swollen legs Varicose veins or History of unexplained or recurrent spontaneous Oral contraceptives or hormone replacement Sepsis (< 1 month) Serious lung disease, including pneumonia (< 1 month) Abnormal pulmonary function Acute myocardial infarction Congestive heart failure (< 1 month) History of inflammatory bowel disease Medical patient at bed rest Age 61-74 Arthroscopic surgery Major open surgery (> 45 min) Laparoscopic surgery (> 45 min) Malignancy Confined to bed (> 72 hours) Immobilizing plaster cast Central venous access Age >= 75 History of VTE Family history of VTE Factor V Leiden Prothrombin [id number] Lupus anticoagulant Anticardiolipin antibodies Elevated serum homocysteine Heparin-induced thrombocytopenia Other congenital or acquired thrombophilia Stroke (< 1 month) Elective arthroplasty Hip, pelvis, or leg fracture Acute spinal cord injury (< 1 month) Prophylaxis Regimen: Total Risk Factor Score Risk Level Prophylaxis Regimen 0-1 Low Early ambulation 2 Moderate Order ONE of the following: *Sequential Compression Device (SCD) *Heparin 5000 units SQ BID 3-4 Higher Order ONE of the following medications: *Heparin 5000 units SQ TID *Enoxaparin/Lovenox 40 mg SQ daily (WT < 150 kg, CrCl > 30 mL/min) *Enoxaparin/Lovenox 30 mg SQ daily (WT < 150 kg, CrCl > 10-29 mL/min) *Enoxaparin/Lovenox 30 mg SQ BID (WT < 150 kg, CrCl > 30 mL/min) AND/OR *Sequential Compression Device (SCD) 5 or more Highest Order ONE of the following medications: *Heparin 5000 units SQ TID (Preferred with Epidurals) *Enoxaparin/Lovenox 40 mg SQ daily (WT < 150 kg, CrCl > 30 mL/min) *Enoxaparin/Lovenox 30 mg SQ daily (WT < 150 kg, CrCl > 10-29 mL/min) *Enoxaparin/Lovenox 30 mg SQ BID (WT < 150 kg, CrCl > 30 mL/min) AND *Sequential Compression Device (SCD) Assessment and Plan - Plan A/P - chest pain-atypical serial troponin negative so far- now is pain free -electrolyte abnormalities; Hypokalemia/ Hypomagnesemia/ hypophosphatemia replaced in ER- BMP/ electrolytes today pending; will monitor and replace as needed. RUQ pain- will check GB ultrasound. Discussed Condition With: the patient. Discharge Planning: within the next 24 hrs- pending the repeated blood work and GB ultrasound.
[2018-05-18 10:57] LABS: Anion Gap 9 meq/L (5-15); Blood Urea Nitrogen 5 mg/dL (7-18); Calcium 7.7 mg/dL (8.5-10.1); Carbon Dioxide 23.9 meq/L (21.0-32.0); Chloride 111 meq/L (98-107); Glomerular Filtration Rate 80 mL/min (>89); Glucose,Random 92 mg/dL (74-106); Potassium 3.9 meq/L (3.5-5.1); Sodium 144 meq/L (136-145)
[2018-05-18 11:00] LABS: Magnesium 2.4 mg/dL (1.5-2.5); Phosphorus 3.2 mg/dL (2.5-4.9)
[2018-05-18 12:45] VITALS: RESP 18
--- NOTE | 2018-05-18 14:43 | US ---
EXAM DATE: 05/18/2018 1:44 PM EDT AGE/SEX: 37 years / Male INDICATIONS: Right upper quadrant pain. Nausea. CLINICAL DATA: This is the patient's initial encounter. Patient reports that signs and symptoms have been present for 1 day and indicates a pain score of 5/10. MEDICAL/SURGICAL HISTORY: . Right upper quadrant pain. Nausea. . Vasectomy. COMPARISON: No prior exams available for comparison. MEASUREMENTS: Liver:__ 15.2 cm. Common Bile Duct:__ 3mm. FINDINGS: Liver: Normal echotexture without focal lesion or ductal dilatation. Portal Vein: Hepatopedal flow seen in portal vein. Common Duct: No intraluminal mass or stone visualized. Gallbladder: Demonstrates no wall thickening or pericholecystic fluid. No stones visualized. Pancreas: Not well visualized. Right Kidney: Increased echotexture. No mass or hydronephrosis. Other: CONCLUSION: 1. Poor visualization of pancreas otherwise unremarkable examination. Electronically signed by: Akbar Lara MD 05/18/2018 2:42 PM EDT
[2018-05-18 15:09] VITALS: BP 107/58; PULSE 86; TEMP 97.6; O2SAT 99
--- NOTE | 2018-05-18 16:13 | ECG ---
Date Performed: 05/18/2018 Time Performed: 03:25:02 PTAGE: 37 years EKG: Sinus rhythm Since the previous tracing, no significant change noted NORMAL ECG NO PREVIOUS TRACING DOCTOR: Parag Glez Interpretating Date/Time 05/18/2018 16:11:44
--- NOTE | 2018-05-18 16:14 | ECG ---
Date Performed: 05/18/2018 Time Performed: 09:19:58 PTAGE: 37 years EKG: SINUS BRADYCARDIA ST ELEVATION, PROBABLY EARLY REPOLARIZATION Since the previous tracing, n o significant change noted BORDERLINE ECG PREVIOUS TRACING : 05/18/2018 03.25 DOCTOR: Parag Glez Interpretating Date/Time 05/18/2018 16:11:55
== END 2018-05-18 16:54 | disposition home or self-care (01) ==
LOC: NEPC 03:00 → NEDA 03:00 → NEPHCDU 12:12
PROVIDERS: ADMIT Internal Medicine; ATTEND Internal Medicine
DX: R42 Dizziness and giddiness; R07.89 Other chest pain; E87.2 Acidosis; R06.02 Shortness of breath; M54.9 Dorsalgia, unspecified; R10.11 Right upper quadrant pain; Z87.891 Personal history of nicotine dependence; J45.909 Unspecified asthma, uncomplicated